=== PATIENT | male | born 1965 | race Two or more races ===

== ENCOUNTER 2020-10-03 20:58 | Emergency (ER) | payer SELFPAY ==
[~2020-10-03] VITALS: Ht 170.2 cm; Wt 59.0 kg
--- NOTE | 2020-10-03 21:21 | NUR ---
BIBRA[address] FROM [address] PER RA, PT WAS AGITATED AND AGGRESSIVE ON SCENE RECEIVED 5MG VERSED, 84% O2 SAT ON ROOM AIR,PLACED ON 6L NC, NOW SATING 98 OTHER VSS TO ER BED 10, BG 147 MD AWARE. PT AWAKE, UNRESPONSIVE
[2020-10-03 21:48] LABS: BASOPHILS # (AUTO) 0.1 /CMM (0.0-0.2); BASOPHILS % (AUTO) 1.2 % (0.0-2.0); EOSINOPHILS % (AUTO) 1.9 % (0.0-6.0); HEMATOCRIT 42 % (39-51); HEMOGLOBIN 13.9 g/dL (13.5-17.5); LYMPHOCYTES # (AUTO) 1.3 /CMM (0.8-4.8); LYMPHOCYTES % (AUTO) 13.7 % (20.0-44.0); MEAN CORPUSCULAR HGB CONC 33 g/dl (31.0-36.0); MEAN CORPUSCULAR VOLUME 91 fL (80-96); MONOCYTES # (AUTO) 0.7 /CMM (0.1-1.30); NEUTROPHILS # (AUTO) 7.3 /CMM (1.8-8.9); NEUTROPHILS % (AUTO) 76.2 % (43.0-81.0); PLATELET COUNT (AUTO) 360 /CMM (150-450); RED BLOOD CELL COUNT(AUTO) 4.64 MIL/uL (4.5-6.0); WHITE BLOOD COUNT (AUTO) 9.6 K/uL (4.3-11.0)
[2020-10-03 21:48] LABS: BILIRUBIN,URINE Negative (NEGATIVE); COLOR,URINE YELLOW (YELLOW); LEUKOCYTE ESTERASE ,URINE Negative (NEGATIVE); NITRITE, URINE Negative (NEGATIVE); PH,URINE 5.5 (5.0-8.0); PROTEIN,URINE >=300 mg/dl (NEGATIVE); UGLUCOSE 100 MG/DL mg/dL (NEGATIVE); UROBILINOGEN,URINE 0.2 EU/dL (0.2)
--- NOTE | 2020-10-03 21:48 | NUR ---
URINE COLLECTED AND SENT TO LAB
[2020-10-03 22:05] LABS: CALCIUM, SERUM 8.6 mg/dL (8.5-10.1); CARBON DIOXIDE 23 mmol/L (21-32); CHLORIDE 105 mmol/L (98-107); CREATININE 1.5 mg/dL (0.6-1.3); GLUCOSE 104 mg/dL (74-106); POTASSIUM 3.3 mmol/L (3.5-5.1); SODIUM SERUM 140 mmol/L (136-145); UREA NITROGEN, BLOOD 10 mg/dL (7-18)
[2020-10-03 22:08] LABS: WBC,URINE 51-80 /HPF (0-3)
[2020-10-03 22:09] LABS: BACTERIA,URINE Rare /HPF (None Seen)
[2020-10-03 22:10] LABS: CALCIUM OXALATE CRYSTALS,UR Rare /HPF (None Seen); SQUAMOUS EPITHELIAL CELL,UR Rare /HPF (None Seen); URINE AMORPHOUS PHOSPHATES Moderate /HPF (None Seen)
[2020-10-03 22:11] LABS: ALANINE AMINOTRANSFERASE 32 U/L (12-78); ALBUMIN 3.6 g/dL (3.4-5.0); ALCOHOL, BLOOD < 3 mg/dL (0-0); ALKALINE PHOSPHATASE 89 U/L (46-116); ASPARTATE AMINOTRANSFERASE 43 U/L (15-37); BILIRUBIN,TOTAL 0.1 mg/dL (0.2-1.0); TOTAL PROTEIN, SERUM 7.4 g/dL (6.4-8.2)
[2020-10-03 22:12] LABS: ACETAMINOPHEN < 0 ug/ml (10-30)
--- NOTE | 2020-10-04 05:13 | NUR ---
Patient discharged to home in stable condition. Written and verbal after care instructions given. Patient verbalizes understanding of instruction.
[2020-10-04 05:14] VITALS: BP 119/60
== END 2020-10-04 05:14 | disposition home or self-care (01) ==
LOC: ER 21:03
DX: F15.10 Other stimulant abuse, uncomplicated (principal)
CPT/HCPCS: 36415; 80048-TC; 80076-TC; 81001; 82962-TC; 85025-TC; 87086-TC; G0480

== ENCOUNTER 2020-10-23 01:27 | Inpatient (IN) | payer MEDICAID ==
[~2020-10-23] VITALS: Ht 177.8 cm; Wt 63.5 kg
--- NOTE | 2020-10-23 02:04 | NUR ---
PT AAOX4. BIBSELF C/O ACTING BIZZARE. PT PLACED IN BED 15 ON MONITOR AND PULSE OX. AWAITING FOR ER MD FOR EVAL AND ORDERS.
[2020-10-23] MEDS ORDERED: BENZTROPINE MESYLATE (2MG/2ML) 2 MG/2 ML AMPUL ONE (02:12)
[2020-10-23] MEDS ORDERED: HALOPERIDOL LACTATE INJ 5 MG/ML VIAL ONE (02:12)
[2020-10-23] MEDS ORDERED: LIDOCAINE 2% JEL UROJET 10 ML MM ONE ×2 (02:13→02:30)
[2020-10-23] MEDS ORDERED: LORAZEPAM INJ 2 MG/ML VIAL ONE (02:13)
[2020-10-23] MEDS ORDERED: LORAZEPAM INJ 2 MG/ML VIAL IM ONE (02:30)
[2020-10-23] MEDS ORDERED: HALOPERIDOL LACTATE INJ 5 MG/ML VIAL IM ONE (02:30)
[2020-10-23] MEDS ORDERED: BENZTROPINE MESYLATE (2MG/2ML) 2 MG/2 ML AMPUL IM ONE (02:30)
--- NOTE | 2020-10-23 03:02 | NUR ---
CALLED LAB REGARDING BLOOD DRAW.
[2020-10-23 03:26] LABS: BASOPHILS % (AUTO) 0.2 % (0.0-2.0); HEMATOCRIT 38 % (39-51); HEMOGLOBIN 12.8 g/dL (13.5-17.5); LYMPHOCYTES # (AUTO) 1.6 K/uL (0.8-4.8); LYMPHOCYTES % (AUTO) 9.1 % (20.0-44.0); MEAN CORPUSCULAR HGB CONC 34 g/dl (31.0-36.0); MEAN CORPUSCULAR VOLUME 88 fL (80-96); MONOCYTES # (AUTO) 1.4 K/uL (0.1-1.30); MONOCYTES % (AUTO) 8.2 % (2.0-12.0); NEUTROPHILS # (AUTO) 14.2 K/uL (1.8-8.9); NEUTROPHILS % (AUTO) 82.5 % (43.0-81.0); PLATELET COUNT (AUTO) 357 K/uL (150-450); RED BLOOD CELL COUNT(AUTO) 4.29 MIL/uL (4.5-6.0); WHITE BLOOD COUNT (AUTO) 17.2 K/uL (4.3-11.0)
[2020-10-23 03:31] LABS: CALCIUM, SERUM 9.1 mg/dL (8.5-10.1); CARBON DIOXIDE 22 mmol/L (21-32); CHLORIDE 99 mmol/L (98-107); GLUCOSE 120 mg/dL (74-106); POTASSIUM 4.2 mmol/L (3.5-5.1); SODIUM SERUM 134 mmol/L (136-145); UREA NITROGEN, BLOOD 32 mg/dL (7-18)
[2020-10-23 03:36] LABS: ALANINE AMINOTRANSFERASE 22 U/L (12-78); ALBUMIN 4.1 g/dL (3.4-5.0); ALKALINE PHOSPHATASE 83 U/L (46-116); ASPARTATE AMINOTRANSFERASE 45 U/L (15-37); BILIRUBIN,DIRECT 0.1 mg/dL (0.0-0.2); BILIRUBIN,TOTAL 0.4 mg/dL (0.2-1.0); TOTAL PROTEIN, SERUM 7.5 g/dL (6.4-8.2)
[2020-10-23 03:40] LABS: ACETAMINOPHEN 0 ug/ml (10-30); ALCOHOL, BLOOD < 3 mg/dL (0-0)
[2020-10-23 03:57] LABS: THYROID STIMULATING HORMONE 1.619 uIU/mL (0.358-3.74)
[2020-10-23 04:00] LABS: BILIRUBIN,URINE SMALL (NEGATIVE); COLOR,URINE YELLOW (YELLOW); LEUKOCYTE ESTERASE ,URINE Negative (NEGATIVE); NITRITE, URINE Negative (NEGATIVE); PH,URINE 5.5 (5.0-8.0); PROTEIN,URINE >=300 mg/dl (NEGATIVE); UGLUCOSE Negative (NEGATIVE); UROBILINOGEN,URINE 0.2 EU/dL (0.2)
[2020-10-23 04:25] LABS: BACTERIA,URINE Few /HPF (None Seen)
[2020-10-23 04:26] LABS: HYALINE CASTS, URINE Few /LPF (None Seen); MUCUS,URINE Few /LPF (None Seen); SQUAMOUS EPITHELIAL CELL,UR Few /HPF (None Seen); URINE AMORPHOUS URATE Moderate /HPF (None Seen)
--- NOTE | 2020-10-23 07:05 | NUR ---
REMAINS IN BED, RESTING COMFORTABLY.
[2020-10-23] MEDS ORDERED: IV NS 0.9% 1,000 ML BAG IV ONE (07:30)
--- NOTE | 2020-10-23 11:06 | NUR ---
"SS consult requested for bizarre bahvior, homelessness and drug use. SW met with pt. bedside. However, pt. was not rousable to verbal cues. Pt. was sedated overnight. SW will follow up at a latr time. SW placed homeless resourcesa nd homeless waiver in the pt.'s chart. Substance Abuse resources provided included: [facility] Substance Abuse Self-Helpline ([facility]) ; CRI -HELP [address] [facility] [place] [phone] ; [facility] [address] [facility] [address] ; [facility] [address] [facility] [address] ; [facility] [id number] ; [facility] 2890 Tariq Almanzar [facility] [address] ; [facility] 909 [facility] [phone] ; [facility] Substance Abuse Helpline([facility])-[facility] ; [facility] ; [facility]; [facility] [place]; [facility] Tariq Almanzar; [facility] [place]; [facility] [facility] [place]; [facility] [place] [facility] Vantage; Alcoholics Anonymous -SFV; Va-Futg-Boroltd ; Marijuana Anonymous -SFV; Narcotics Anonymous www.na.org; Year-round shelters: [place] [address] [place] [address] ; [facility] [facility] [place] [address] [facility] [place] [address]; [place] [facility] [address] [facility] [address] Winter Shelters: Vesna Graff Tonya Provider: [facility] [place] Address: [address] [place], [address] # of Beds: 47 Population Served: [facility] 6 | [facility] Chacha Giraldo [place] Provider: [facility] Last Address: [address], [address] # of Beds: 66 Population Served: [facility] Anderson [place] Provider: [facility] Address: [address] [facility], [address] # of Beds: 56 Population Served: [facility] [place] Provider: SS/[facility] Address: [address] [place] [address], [address] # of Beds: 49 Population Served: [facility] 8 | [facility] Provider: First to Serve Address: [address] [facility], [address] # of Beds: 37 Population Served: [facility] Hygiene: [place] [facility]: [address] [place] [facility] ; [facility] [address] [facility] ; [facility] 1126 [facility] . Food Resources: [place] [facility] at [facility]- [address]. [place]; Meet Each Need with Dignity ([facility]) [address] Gur[address] Zunigadc; [facility] [facility]; [facility] [address] [place]. Mental Health resources provided: [facility] [address] [place] [address] ; [facility] [address] [place] [address], Tariq VivmargyCHARLES [address] ; [facility] Mental [facility] [address] [place] [address] ; [facility] [address] [place], [place] [address] Healthcare Clinics: [facility] [address] Tariq Alman[address] [facility], [address] [place]. [place] ; [facility] [address] [facility] [address] [place] [address]; [facility] [address] [facility] [place] [address] [phone]) [phone] Counseling--Outpatient [facility] [address] [facility], [place] [address] (Specializes in in-depth psychotherapy for emotional distress: anxiety, depression, interpersonal conflicts, life transitions, childhood abuse) [facility] [address] [place] [address] (Assist with solving problem marital difficulties, separation & divorce, aging parents, & grief, chronic & terminal illness) [facility] [address] [place] [address] (Deal with loss & grief, anxiety, marital difficulties) Homebound/Mental Health Services [address], [address] [place] [address] (Provide in-home mental services to people who are incapable of leaving their homes) Organization for Needs of the Elderly Senior Service/Resource Center [address] [place] [address] [facility] [address] [place] [address] PSYCHIATRIC OUTPATIENT SERVICES [facility] Partial Hospitalization and Intensive Outpatient Program (Managed Care and Waterproof Only)[address] [address] Sanchez. [facility] [phone] [facility] Partial Hospitalization and Outpatient Khnkctu[address] [place], [place] [phone] [facility] Partial Hospitalization and Outpatient Cryroms[address] [place], [place] [phone] TARIQ ALMANZAR [facility] Bmk[address] [place], [place] [phone] [facility] Tariq Almanzar Partial Hospitalization and Outpatient [id number] [facility] Tariq AlmanzarARY, [phone] "
--- NOTE | 2020-10-23 11:47 | NUR ---
GOT BED 109
--- NOTE | 2020-10-23 11:50 | NUR ---
report given to Beni BARROS for jerome.
[2020-10-23] MEDS ORDERED: ONDANSETRON HCL/PF 4 MG/2 ML VIAL IVP PRN (12:00)
[2020-10-23] MEDS ORDERED: ACETAMINOPHEN 325 MG TABLET PO PRN (12:00)
[2020-10-23] MEDS ORDERED: Z GUARD REMEDY 2 OZ OINT TP PRN (12:00)
[2020-10-23] MEDS ORDERED: LORAZEPAM INJ 2 MG/ML VIAL IV PRN (12:00)
[2020-10-23] MEDS ORDERED: MAGNESIUM HYDROXIDE 30 ML UDC PO PRN (12:00)
[2020-10-23] MEDS ORDERED: MAG HYDROX/AL HYDROX/SIMETH 30 ML UDC PO PRN (12:00)
--- NOTE | 2020-10-23 12:41 | NUR ---
wheeled patient via gurney accompanied y RN and emt in no distress. RN assigned at bedside to assume care.
--- NOTE | 2020-10-23 12:45 | NUR ---
RN NOTE RECEIVED PATIENT FROM ER VIA [facility], PATIENT ASSISTED TO TRANSFER FROM [facility] TO BED, ASLEEP WITH EVEN AND UNLABORED RESPIRATION, TRIED TO AWAKEN PATIENT FOR ASSESSMENT, UNABLE TO BE AWAKEN AT THIS TIME, SKIN INTACT, ON TELE MONITOR SR HR 0F 72, ADMISSION INITIATED AT THIS TIME, WILL CONTINUE TO MONITOR PATIENT. SAFETY MEASURES OBSERVED, WHEELS LOCK, CALL LIGHT WITHIN REACH.
[2020-10-23] MEDS: IV NS 0.9% 1,000 ML IV PRN (13:54)
[2020-10-23 16:00] VITALS: BP_SYST 105; BP_SYST 132; BP_DIAS 60; BP_DIAS 64
--- NOTE | 2020-10-23 18:33 | NUR ---
RN CLOSING NOTES PATIENT OBSERVED ON BED ADMITTED FOR RHABDOMYOLYSIS. C/C OF "TOOK 1 HIT OF POT" ACTING BIZZARE , ASLEEP BREATHING EVEN AND UNLABORED, ON TELEMONITOR SR WITH HR OF 72, IV ON LEFT AC, PATENT INFUSING WELL IV HYDRATION NS @100CC/HR, NO PAIN OBSERVED AT THIS TIME, AFEBRILE AT THIS TIME, SAFETY MEASURES OBSERVED, BED WHEELS LOCK, CALL LIGHT WITHIN REACH, WILL CONTINUE TO MONITOR, WILL ENDORSE TO NEXT SHIFT
--- NOTE | 2020-10-23 19:30 | NUR ---
CERTIFIED FRAUD EXAMINER OPENING NOTE RECEIVED PT IN BED WITH EYES CLOSED, EASILY AROUSED. A/O X2. PT IS STABLE ON ROOM AIR. NO SOB NOTED. NO S/S OF RESPIRATORY DISTRESS. PT IS ON EXTERNAL NUCLEAR FUELS RESEARCH ENGINEER READING SR 72. PT HAS NO C/O PAIN OR DISCOMFORT AT THIS TIME. IV ACCESS IN LEFT AC #22, INFUSING NS @ 100 ML/HR. IV ACCESS IS INTACT, PATENT, AND FLUSHING WELL. SAFETY MEASURES MAINTAINED. BED IN LOWEST LOCKED POSITION, HOB ELEVATED, SIDE RAILS UP X2. CALL LIGHT AND TABLE WITHIN REACH. WILL CONTINUE WITH PLAN OF CARE.
[2020-10-23 20:00] VITALS: BP 90/64
[2020-10-24] VITALS: BP 85/42
--- NOTE | 2020-10-24 01:00 | NUR ---
PT WAS EXTREMELY AGITATED AND REFUSED TO HAVE CHEST HAIR SHAVED FOR PROPER PLACEMENT OF EKG LEADS. UNABLE TO OBTAIN TELE READING. PER TYRONE MORTENSEN NP, DISCONTINUED TELE MONITOR AT THIS TIME. ORDER READ BACK AND CARRIED OUT. WILL CONTINUE TO MONITOR PT.
[2020-10-24 04:00] VITALS: BP 107/61
[2020-10-24] MEDS: IV NS 0.9% 1,000 ML IV PRN ×2 (04:00→18:03)
--- NOTE | 2020-10-24 06:21 | NUR ---
MS RN CLOSING NOTE PT IS IN BED WITH EYES CLOSED. LETHARGIC, BUT AROUSABLE. A/O X2. PT IS STABLE ON ROOM AIR. NO SOB NOTED. NO S/S OF RESPIRATORY DISTRESS. PT HAS NO C/O PAIN OR DISCOMFORT AT THIS TIME. IV ACCESS IS INTACT, PATENT, AND FLUSHING WELL. ALL NEEDS HAVE BEEN MET. SAFETY PRECAUTIONS MAINTAINED AT ALL TIMES. BED IN LOWEST LOCKED POSITION, HOB ELEVATED, SIDE RAILS UP X3, BED ALARM ON. CALL LIGHT AND TABLE WITHIN REACH. WILL ENDORSE TO ONCOMING NURSE FOR DYLAN.
--- NOTE | 2020-10-24 07:30 | NUR ---
RN OPENING NOTES Patient received in bed and alert and oriented . Patient up and ready for breakfast. Patient is on room air with 02 saturation of 98%. No c/o pain or discomfort. Will continue to monitor. Call light with in reach. Safety measures in place. Patient educated to use call light.
[2020-10-24 08:00] VITALS: BP 125/75
[2020-10-24 08:37] LABS: BASOPHILS # (AUTO) 0.2 K/uL (0.0-0.2); BASOPHILS % (AUTO) 1.4 % (0.0-2.0); EOSINOPHILS % (AUTO) 0.6 % (0.0-6.0); HEMATOCRIT 41 % (39-51); HEMOGLOBIN 13.5 g/dL (13.5-17.5); LYMPHOCYTES # (AUTO) 1.2 K/uL (0.8-4.8); LYMPHOCYTES % (AUTO) 8.7 % (20.0-44.0); MEAN CORPUSCULAR HGB CONC 33 g/dl (31.0-36.0); MEAN CORPUSCULAR VOLUME 91 fL (80-96); MONOCYTES # (AUTO) 0.9 K/uL (0.1-1.30); MONOCYTES % (AUTO) 6.7 % (2.0-12.0); NEUTROPHILS # (AUTO) 11.2 K/uL (1.8-8.9); NEUTROPHILS % (AUTO) 82.6 % (43.0-81.0); PLATELET COUNT (AUTO) 317 K/uL (150-450); RED BLOOD CELL COUNT(AUTO) 4.54 MIL/uL (4.5-6.0); WHITE BLOOD COUNT (AUTO) 13.6 K/uL (4.3-11.0)
[2020-10-24 09:02] LABS: CREATININE 1.3 mg/dL (0.6-1.3); MAGNESIUM 2.1 mg/dL (1.8-2.4); PHOSPHORUS 3.4 mg/dL (2.5-4.9); POTASSIUM 4.4 mmol/L (3.5-5.1)
--- NOTE | 2020-10-24 10:55 | NUR ---
Layer Up consult: Layer Up consult requested for homelessness and substance use. Patient is a 54-year-old, male. SW attempted to interview the patient at his bedside in the med-surg unit. Patient presented irritable and repeatedly stated, "Go away!" SW will follow up at a later time. PLAN: SW will follow up at a later time to interview the patient and assess the patient's need for community resources.
[2020-10-24 12:00] VITALS: BP 129/84
--- NOTE | 2020-10-24 15:37 | NUR ---
Siderographist note: SW follow up to interview the patient homelessness and substance use consult request. SW attempted to interview the patient at his bedside in the med-surg unit. Patient refused to speak to SW and stated, "can you come back later?" PLAN: SS will remain available and coordinate with nursing staff for consult and to assess the patient's needs for community resources.
[2020-10-24 16:00] VITALS: BP 130/79
--- NOTE | 2020-10-24 18:53 | NUR ---
RN CLOSING NOTES Patient is alert and oriented . Breathing even and unlabored. No c/o pain or discomfort. Iv site to left arm running well Normal saline 0.45 % at 100 cc/hour. Patient ambulates to the bathroom and ate 100 % breakfast and 100 % lunch but refused dinner. Patient is on room air with 02 saturation of 98%. Fall precautions observed. Will continue to monitor. Call light with in reach. Safety measures in place. Patient educated to use call light.Will endorse to next shift for DYLAN.
[2020-10-24] MEDS: IV 1/2NS 1000 ML 1,000 ML IV PRN (18:57)
--- NOTE | 2020-10-24 19:32 | NUR ---
RN NOTE PATIENT IN BED RESTING, ALERT AND ORIENTED X2-3. ON ROOM AIR, O2 SAT 96%. NO SIGNS OF RESPIRATORY DISTRESS. DENIES ANY PAIN AT THIS TIME. WITH LEFT AC #22 PATENT AND INTACT RUNNING NS @ 100ML/HR. NO SIGNS OF INFILTRATION. BED LOCKED AND IN LOWEST POSITION. BED ALARM ON. CALL LIGHT WITHIN REACH. ALL NEEDS ANTICIPATED.
[2020-10-24 20:00] VITALS: BP 108/63
[2020-10-25] VITALS: BP 90/54
[2020-10-25 04:00] VITALS: BP 106/53
[2020-10-25] MEDS: IV 1/2NS 1000 ML 1,000 ML IV PRN (06:52)
[2020-10-25 07:14] LABS: BASOPHILS # (AUTO) 0.1 K/uL (0.0-0.2); BASOPHILS % (AUTO) 0.9 % (0.0-2.0); EOSINOPHILS % (AUTO) 4.1 % (0.0-6.0); HEMATOCRIT 35 % (39-51); HEMOGLOBIN 11.8 g/dL (13.5-17.5); LYMPHOCYTES # (AUTO) 1.8 K/uL (0.8-4.8); LYMPHOCYTES % (AUTO) 22.2 % (20.0-44.0); MEAN CORPUSCULAR HGB CONC 33 g/dl (31.0-36.0); MEAN CORPUSCULAR VOLUME 90 fL (80-96); MONOCYTES # (AUTO) 0.7 K/uL (0.1-1.30); NEUTROPHILS # (AUTO) 5.1 K/uL (1.8-8.9); NEUTROPHILS % (AUTO) 63.8 % (43.0-81.0); PLATELET COUNT (AUTO) 283 K/uL (150-450); RED BLOOD CELL COUNT(AUTO) 3.91 MIL/uL (4.5-6.0)
--- NOTE | 2020-10-25 07:16 | NUR ---
RN NOTE PATIENT ALERT AND ORIENTED X2-3. ON ROOM AIR, O2 SAT 96%. NO SIGNS OF RESPIRATORY DISTRESS. WITH LEFT AC #22 PATENT AND INTACT RUNNING 1/2 NS @ 100ML/HR. NO SIGNS OF INFILTRATION. NO SIGNIFICANT CHANGES DURING THIS SHIFT. BED LOCKED AND IN LOWEST POSITION. BED ALARM ON. CALL LIGHT WITHIN REACH. WILL ENDORSE TO AM SHIFT.
[2020-10-25 07:27] LABS: CALCIUM, SERUM 7.8 mg/dL (8.5-10.1); MAGNESIUM 1.9 mg/dL (1.8-2.4); PHOSPHORUS 2.7 mg/dL (2.5-4.9); POTASSIUM 4.1 mmol/L (3.5-5.1)
--- NOTE | 2020-10-25 07:30 | NUR ---
RN OPENING NOTES Patient is alert and oriented . Breathing even and unlabored. No c/o pain or discomfort. Iv site to left arm running well Normal saline 0.45 % at 100 cc/hour. . Patient is on room air with 02 saturation of 97%. Fall precautions observed. Will continue to monitor. Call light with in reach.
[2020-10-25 08:00] VITALS: BP 100/67
--- NOTE | 2020-10-25 11:00 | NUR ---
Patient pulled out his iv line and refused to have his re inserted. Patient stated that he wants to leave. MD Sherwood made aware. Per MD patient is free to leave. Patient informed and noted to be sleeping at this time.
[2020-10-25 12:00] VITALS: BP 98/58
--- NOTE | 2020-10-25 14:54 | NUR ---
Patient left the facility and refused to sign AMA form. Patient was approached by staff to have clothing but walked out. Patient did not have any IV access. MD Sherwood aware.
--- NOTE | 2020-10-25 15:03 | NUR ---
SW attempted to meet with pt. However, pt. has left AMA.
== END 2020-10-25 16:13 | disposition home or self-care (01) | DRG 469 ==
LOC: ER 01:28 → MEDSG1 12:59 → TELE1 13:22 → MEDSG1 10-24 05:57
PROVIDERS: ADMIT Internal Medicine; ATTEND Internal Medicine
DX: N17.0 Acute kidney failure with tubular necrosis (principal); G92 Toxic encephalopathy; E87.1 Hypo-osmolality and hyponatremia; F20.9 Schizophrenia, unspecified; M62.82 Rhabdomyolysis; E86.1 Hypovolemia; D72.829 Elevated white blood cell count, unspecified; F19.10 Other psychoactive substance abuse, uncomplicated; F29 Unspecified psychosis not due to a substance or known physiological condition; Z20.822 Contact with and (suspected) exposure to COVID-19
CPT/HCPCS: 36415; 71045-TC; 80048-TC; 80076-TC; 81001; 82550-TC; 82553; 83735-TC; 84100-TC; 84443-TC; 84484-TC; 85025-TC; 87081-TC; G0378; G0480; J0515; J1630; J2060; J3490; J7030; U0003